=== PATIENT | male | born 1990 ===

== ENCOUNTER 2022-01-16 16:10 | Emergency (ER) | payer OTHER ==
[2022-01-16 17:09] VITALS: BP 136/77; PULSE 105; RESP 18; TEMP 98.2
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
[2022-01-16] MEDS ORDERED: ACETAMINOPHEN TAB 500 MG TAB PO STA (19:13)
[2022-01-16] MEDS ORDERED: IBUPROFEN 600 MG TAB PO STA (19:13)
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
== END 2022-01-16 19:36 | disposition home or self-care (01) ==
LOC: EC 16:10
DX: S20.219A Contusion of unspecified front wall of thorax, initial encounter (principal); S80.212A Abrasion, left knee, initial encounter; S16.1XXA Strain of muscle, fascia and tendon at neck level, initial encounter; V43.52XA Car driver injured in collision with other type car in traffic accident, initial encounter; Y92.410 Unspecified street and highway as the place of occurrence of the external cause
CPT/HCPCS: 70450; 71046; 72125